=== PATIENT | female | born 1975 | race Caucasian/White ===

== ENCOUNTER → 2016-12-31 | Outpatient (CLI) | payer OTHER ==
--- NOTE | 2016-12-31 14:12 | FL ---
EXAMINATION TYPE: FL arthrogram shoulder RT DATE OF EXAM: 12/31/2016 2:08 PM HISTORY: Pain Pre-MRI arthrogram was performed. Informed consent was obtained and all the patient's questions were answered. A combination of Omnipaque, normal saline and gadolinium was injected into the right should er joint. Appropriate local anesthesia was obtained with 1% lidocaine. Standard sterile technique was utilized. Fluoroscopy was utilized. Patient was sent to MRI for MRI evaluation.
--- NOTE | 2017-01-01 08:20 | MR ---
EXAMINATION TYPE: MR shoulder arthrogrm RT w co DATE OF EXAM: 12/31/2016 2:53 PM COMPARISON: NONE HISTORY: Rt shoulder pain/arthrogram TECHNIQUE: Multiplanar multispin echo imaging of the right shoulder was performed. Contrast was utili zed. There is artifact however of uncertain etiology within the contrast pool. FINDINGS: Rotator cuff : There is a bursal surface partial tear at the critical zone of the supraspinatus tendo n. No evidence for full-thickness tear or retracted tear at this time. The remaining rotator cuff ten dons are intact. Bursa: No bursal effusion or thickening is seen. Musculature: There is no muscular tear, contusion, or atrophy. Acromioclavicular joint : Subacromial spurring resulting in moderate impingement. AC joint arthropath y also identified. Osseous structures : There are no fractures or regions of abnormal bone marrow signal intensity. Long biceps tendon : The biceps tendon is normally situated within the bicipital groove. No complete or partial biceps tendon tear is present. Glenohumeral Joint fluid : There is no glenohumeral joint effusion. Cartilage and Bone : No focal hyaline cartilage defects are noted. No Hill-Sachs, reverse Hill-Sachs, or bony Bankart lesions are seen. Labrum : There are no SLAP or soft tissue Bankart lesions. No paralabral cysts are seen. OTHER FINDINGS : none IMPRESSION: 1. bursal surface partial tear at the critical zone of the supraspinatus tendon. No evidence for ful l-thickness tear or retracted tear at this time. 2. Moderate impingement secondary subacromial spurring and AC joint arthropathy.
== END | disposition home or self-care (01) ==
LOC: RADFLMAIN 13:01
PROVIDERS: ATTEND Orthopaedic Surgery
DX: S46.011A Strain of muscle(s) and tendon(s) of the rotator cuff of right shoulder, initial encounter (principal); M19.011 Primary osteoarthritis, right shoulder; M25.711 Osteophyte, right shoulder; M24.111 Other articular cartilage disorders, right shoulder
CPT/HCPCS: 23350; 73040; 73222; Q9965; A9577

== ENCOUNTER 2017-01-15 21:16 | Emergency (ER) | payer OTHER ==
[2017-01-15 21:24] VITALS: BP 131/62; PULSE 89; RESP 20; TEMP 97.3
[2017-01-15] MEDS ORDERED: ORPHENADRINE 30 MG/ML 2 ML VIAL IM STA (21:31)
--- NOTE | 2017-01-15 21:46 | ED ---
General Adult HPI - General Chief complaint: Back Pain/Injury Stated complaint: back injury/pain Time Seen by Provider: 01/15/17 21:25 Source: patient, RN notes reviewed Mode of arrival: ambulatory Limitations: no limitations - History of Present Illness Initial comments: Patient 41-year-old female who presents emergency room today with a chief complaint of increased lower back pain. Patient states that she was changing the liter box yesterday when she went to stand up straight and felt increased pain in her lower back. She states she's had a difficult time with certain movements. States worse with ambulation trying to stand up straight. She does admit that she uses baclofen at homes had little relief. Also using Tylenol Motrin for pain with no relief of the symptoms. Patient denies any bowel or bladder incontinence retention. Denies any saddle anesthesia. Denies any lumbar radiculopathy. Patient denies any recent fever, chills, shortness of breath, chest pain, abdominal pain, nausea or vomiting, dysuria or hematuria, constipation or diarrhea, headaches or visual changes, or any other complaints. - Related Data Home Medications Medication Instructions Recorded Confirmed Escitalopram Oxalate [Lexapro] 20 mg PO DAILY 08/22/14 04/23/16 clonazePAM [KlonoPIN] 1 mg PO TID 08/22/14 04/23/16 lamoTRIgine [LaMICtal] 100 mg PO BID 08/22/14 04/23/16 oxyCODONE HCL/ACETAMINOPHEN 1 tab PO Q6H PRN 08/22/14 04/23/16 [Percocet 10-325 mg] traZODone HCL 150 mg PO HS 01/20/15 04/23/16 Baclofen [Lioresal] 10 mg PO TID 04/23/16 04/23/16 Pregabalin [Lyrica] 200 mg PO TID 04/23/16 04/23/16 Zolpidem [Ambien] 10 mg PO HS 04/23/16 04/23/16 Allergies Allergy/AdvReac Type Severity Reaction Status Date / Time ibuprofen [From Motrin] Allergy Anaphylaxis Verified 01/15/17 21:24 Review of Systems ROS Statement: Those systems with pertinent positive or pertinent negative responses have been documented in the HPI. ROS Other: All systems not noted in ROS Statement are negative. Past Medical History Past Medical History: No Reported History Additional Past Medical History / Comment(s): ABD. PAIN. HAS HAD HOARSE VOICE AND DRY COUGH FOR PAST 3 WEEKS. HX CLOSED HEAD INJURY 08/22/14 History of Any Multi-Drug Resistant Organisms: MRSA Date of last positivie culture/infection: 2010 MDRO Source:: LT LOWER [place]AW REGION Past Surgical History: Tubal Ligation Past Anesthesia/Blood Transfusion Reactions: Motion Sickness Past Psychological History: Depression Smoking Status: Current every day smoker Past Alcohol Use History: None Reported Past Drug Use History: Marijuana Additional Drug Use History / Comment(s): SMOKES 1-2 JOINTS DAILY PER PT - Past Family History Mother Family Medical History: Cancer Father Family Medical History: Cancer General Exam - General Exam Comments Initial Comments: General: The patient is awake and alert, in no distress, and does not appear acutely ill. Eye: Pupils are equal, round and reactive to light, extra-ocular movements are intact. No nystagmus. There is normal conjunctiva bilaterally. No signs of icterus. Ears, nose, mouth and throat: There are moist mucous membranes and no oral lesions. Neck: The neck is supple, there is no tenderness or JVD. Cardiovascular: There is a regular rate and rhythm. No murmur, rub or gallop is appreciated. Respiratory: Lungs are clear to auscultation, respirations are non-labored, breath sounds are equal. No wheezes, stridor, rales, or rhonchi. Musculoskeletal: patient does have a normal appearance of the thoracic, lumbar spine. No step-offs forms appreciated. Patient does have tenderness midline lumbar spine at L3 to L5. Mild paravertebral tenderness both left and right sides. Strength 5/5. Sensation intact. Pulses equal bilaterally 2+. Neurological: A&O x 3. CN II-XII intact, There are no obvious motor or sensory deficits. Coordination appears grossly intact. Speech is normal. Skin: Skin is warm and dry and no rashes or lesions are noted. Psychiatric: Cooperative, appropriate mood & affect, normal judgment. Limitations: no limitations Course Vital Signs 01/15/17 21:22 Temperature 97.3 F L Pulse Rate 89 Respiratory 20 Rate Blood Pressure 131/62 O2 Sat by Pulse 99 Oximetry Medical Decision Making - Medical Decision Making Patient reexamined at this time and shows no signs of distress. Patient x-rays reviewed and shows evidence of spondylolisthesis of L5-S1. Shows no other acute abnormally. patient's [place] automated prescription system report was reviewed revealing the patient did receive 30 tabs of [place] 7.5 on January 06. patient appears to receive prescription 30 tabs every 15 days. Did discuss this with the patient she states she is currently out of her pain medication. She admits that she did take more than normal because she was having pain. She admits that this pain started yesterday. I did discuss with patient we would be unable to write the pain narcotic for her to go home. Patient did receive both Norflex and Dilaudid here in the emergency room.Advised patient to return to the ER if any symptoms increase or worsen. She states understanding and is in agreement. Disposition Clinical Impression: Acute exacerbation of chronic low back pain Disposition: HOME SELF-CARE Condition: Stable Instructions: Acute Low Back Pain (ED) Additional Instructions: Please use medication as discussed. Please follow-up with family doctor in the next 2 days. Please return to emergency room if the symptoms increase or worsen or for any other concerns. Referrals: Nicho Andersen MD [Primary Care Provider] - 1-2 days Time of Disposition: 22:08
--- NOTE | 2017-01-15 21:49 | XR ---
EXAMINATION TYPE: XR lumbar spine 2 or 3V DATE OF EXAM: 01/15/2017 9:42 PM COMPARISON: NONE HISTORY: Back pain TECHNIQUE: 3 views FINDINGS: There is mild malalignment at L5-S1. There is probably L5 spondylolysis. There is a mild fi rst-degree L5-S1 spondylolisthesis. There is no significant disc space narrowing. Sacroiliac joints a ppear normal. IMPRESSION: L5 spondylolysis with first-degree L5-S1 spondylolisthesis.
[2017-01-15] MEDS ORDERED: HYDROmorphone 1 MG/ML 1 ML SYRINGE IM STA (22:07)
== END 2017-01-15 22:19 | disposition home or self-care (01) ==
LOC: EC 21:16
DX: M54.5 Low back pain (principal); G89.29 Other chronic pain; F32.9 Major depressive disorder, single episode, unspecified; F17.200 Nicotine dependence, unspecified, uncomplicated; Z79.899 Other long term (current) drug therapy; Z88.6 Allergy status to analgesic agent
CPT/HCPCS: 72100; 99283; 96372 ×2; J2360; J1170

== ENCOUNTER → 2017-09-09 | Outpatient (CLI) | payer OTHER ==
--- NOTE | 2017-09-09 10:26 | MR ---
EXAMINATION TYPE: MR lumbar spine wo con DATE OF EXAM: 09/09/2017 COMPARISON: 05/07/2011 HISTORY: 41-year-old female with low back pain TECHNIQUE: Multiplanar, multisequence images of the lumbar spine were acquired. Findings: Vertebral body heights are preserved. Redemonstrated grade 1 anterolisthesis at L5-S1. This may be secondary to bilateral pars defects of L 5. Mild to moderate degenerative disc disease from L3 through S1 levels with disc desiccation and bulgin g discs. Disc desiccation is progressed at both L3-L4 and L5-S1. Tiny posterior annular fissure left paracentral location at L5-S1 and centrally at L3-L4 are new. Facet arthropathy mid to lower lumbar spine. No suspicious bone marrow replacement. Conus medullaris is normal. From T12 through L3 levels, no significant spinal canal or neuroforaminal stenosis. At L3-L4, there is small bulging disc with tiny central annular fissure. No significant canal or fora addie stenosis. At L4-L5, mild facet arthropathy and mild bulging disc. Changes result in minimal bilateral inferior neuroforaminal narrowing, stable to slightly increased from prior. No spinal canal stenosis. At L5-S1, bulging disc with tiny left paracentral annular fissure which closely approaches the marcela sing left S1 nerve root. Minimal inferior right neural foraminal stenosis. No spinal canal stenosis. No prevertebral or paravertebral soft tissue abnormality. IMPRESSION: 1. Mild to moderate degenerative disc disease from L3 through S1 levels, slightly progressed from 201 1 with greater degree of disc desiccation. A small left paracentral annular fissure at L5-S1 and cent rally at L3-L4 appear new. 2. Facet arthropathy mid to lower lumbar spine with redemonstrated grade 1 anterolisthesis at L5-S1 s uspected to be secondary to bilateral L5 pars defects. 3. The left paracentral annular fissure at L5-S1 closely approaches the traversing left S1 nerve root . There is variable minimal inferior foraminal narrowing lower lumbar spine. No cindy canal or forami nal compromise.
== END | disposition home or self-care (01) ==
LOC: RADMRIMAIN 07:44
PROVIDERS: ATTEND Orthopaedic Surgery
DX: M51.37 Other intervertebral disc degeneration, lumbosacral region (principal); M46.96 Unspecified inflammatory spondylopathy, lumbar region; M43.17 Spondylolisthesis, lumbosacral region; M99.73 Connective tissue and disc stenosis of intervertebral foramina of lumbar region; M53.86 Other specified dorsopathies, lumbar region
CPT/HCPCS: 72148

== ENCOUNTER → 2018-04-01 | Outpatient (CLI) | payer OTHER ==
--- NOTE | 2018-04-01 16:24 | US ---
EXAMINATION TYPE: US transvaginal DATE OF EXAM: 04/01/2018 COMPARISON: US 04/25/11 CLINICAL HISTORY: 42-year-old female N92.1 MENORRHAGIA. Heavy, long periods TECHNIQUE: Transvaginal (TV). Date of LMP: 03/29/2018 FINDINGS: Uterus: Anteverted measuring 8.6 x 5.3 x 4.1 cm. Heterogeneous myometrium. There is a small hypoechoi c area posterior body measuring 1.1 cm that is intramural. Cervical nabothian cyst measures 5 mm. Endometrial Stripe: 0.4 cm, within normal limits. Right Ovary: 2.0 x 2.0 x 1.7 cm with a 2 cm dominant follicle or functional cyst. Left Ovary: 2.4 x 1.9 x 1.4 cm No evident adnexal abnormality or cul-de-sac free fluid. IMPRESSION: Heterogeneous appearance to the myometrium can be seen in the setting of diffuse small fibroid change or adenomyosis. There is a 1.1 cm intramural focal fibroid in the posterior uterine body.
--- NOTE | 2018-04-02 07:46 | MM ---
Reason for exam: screening (asymptomatic). Last mammogram was performed 2 years and 2 months ago. History: Family history of breast cancer in aunt. Physical Findings: A clinical breast exam by your physician is recommended on an annual basis and results should be correlated with mammographic findings. MG 3D Screening Mammo W/Cad Bilateral CC and MLO view(s) were taken. Prior study comparison: January 18, 2016, bilateral MG screening mammo w CAD. The breast tissue is heterogeneously dense. This may lower the sensitivity of mammography. There is no discrete abnormality. ASSESSMENT: Negative, BI-RAD 1 RECOMMENDATION: Routine screening mammogram of both breasts in 1 year.
== END | disposition home or self-care (01) ==
LOC: RADMAMWWP 10:59
PROVIDERS: ATTEND Pediatrics
DX: Z12.31 Encounter for screening mammogram for malignant neoplasm of breast (principal); D25.1 Intramural leiomyoma of uterus
CPT/HCPCS: 76830; 77063; 77067

== ENCOUNTER → 2019-04-22 | Outpatient (CLI) | payer OTHER ==
--- NOTE | 2019-04-23 18:10 | MR ---
EXAMINATION TYPE: MR shoulder RT wo con DATE OF EXAM: 04/22/2019 COMPARISON: None HISTORY: 43-year-old female with pain, Traumatic right rotator cuff tear TECHNIQUE: Multiplanar, multisequence imaging of the right shoulder is performed without contrast. FINDINGS: The intracapsular portion of the long head biceps tendon appears diminutive. This may be chronic cabrera ge or could represent a partial tear. The extracapsular portion is appropriately situated along the b icipital groove. Mild heterogeneous signal in subscapularis tendon which remains intact. Prior supraspinatus and infraspinatus tendon repair with laterally positioned suture anchors. There is a large retear involving the mid and posterior supraspinatus tendon measuring 1.8 cm AP and 2.3 cm long. Fluid within the intervening gap contiguous with the glenohumeral joint. Some of the far anterior supraspinatus tendon fibers remain intact as do posterior infraspinatus tendon fibers. Mild fatty infiltration of both supraspinatus and infraspinatus muscle bellies. Moderate degenerative joint space narrowing with marginal spurring and capsular hypertrophy at the ac romioclavicular joint. The glenohumeral joint appears intact. No discrete labral tear given nonarthrographic technique and n o paralabral cyst. No Hill-Sachs deformity or os acromiale. No suspicious bone marrow replacement. IMPRESSION: 1. Large re-tear of most of the supraspinatus tendon measuring 1.8 cm AP and 2.3 cm long. A few of th e far anterior supraspinatus tendon fibers as well as posterior infraspinatus tendon remain intact. 2. Mild fatty infiltration of both supraspinatus and infraspinatus muscle bellies. 3. Diminutive intracapsular portion of the long head biceps tendon may be chronic change or could rep resent a partial tear. 4. Moderate AC joint OA.
== END | disposition home or self-care (01) ==
LOC: RADMRIMAIN 09:14
PROVIDERS: ATTEND Orthopaedic Surgery
DX: S46.011A Strain of muscle(s) and tendon(s) of the rotator cuff of right shoulder, initial encounter (principal); M19.011 Primary osteoarthritis, right shoulder

== ENCOUNTER → 2019-08-26 | Outpatient (CLI) | payer OTHER ==
--- NOTE | 2019-08-26 15:06 | CONS ---
CONSULTATION DATE OF SERVICE: 08/26/2019 A 43-year-old lady who has been evaluated in the [facility] for possible obstructive sleep apnea-hypopnea syndrome. HISTORY OF PRESENT ILLNESS/SLEEP-WAKE EVALUATION: Patient's usual sleep schedule from 10 to 11 p.m. until 5 a.m. on weekdays, 10 - 11 p.m. until 8 a.m. on weekends. She does have problem with falling asleep, has TV set in bedroom. She usually sleeps on the side position with loud snoring, witnessed episodes of stopped breathing during the sleep. Patient wakes up from sleep around 4 times with dry mouth, episodes of heartburn, gasping for air, restless legs, sweating, and the same amount of time with nocturia. In the morning, patient wakes up tired, has difficulties to pay attention, falling asleep during the day, has problems with memory, concentration, irritability, depression and anxiety. [place] Sleepiness Scale is 9. Usually, she does not take any naps during the day. PAST MEDICAL HISTORY: Positive for depression, acid reflux, shoulder, back problem, hyperlipidemia. PAST SURGICAL HISTORY: Tubal ligation, D and C, neck and back injection, right foot surgery and surgery for a rotator cuff on the right side. MEDICATIONS: Lexapro, Lamictal, Prilosec, Lipitor, Percocet, tramadol, Singulair, Motrin, Lyrica. SOCIAL HISTORY: Positive for smoking for about 30 pack years. Patient continues to smoke. Alcohol consumption occasional. FAMILY HISTORY: Hyperlipidemia, arthritis, sinus problems, headaches, cancer, sleep apnea, lung problems, acid reflux, problem, diabetes, mental illness, restless legs. REVIEW OF SYSTEMS: Multiple awakenings from sleep, tiredness and sleepiness during the day, episodes of depression. PHYSICAL EXAM: Pleasant lady without distress, BP 113/74, HR 70, RR 14, height 5, 5, weight 156.2, temperature 97.7, oxygen saturation at room air 97%. OROPHARYNX: Moderately low position of soft palate. No slightly asymmetric, slight restriction of nasal breathing. NECK: Supple, no JVD. Thyroid is not palpable. LUNGS: Clear to percussion and to auscultation. Good air exchange. No wheezing or rhonchi. HEART: S1, S2 regular. No murmurs, gallops, or rubs. ABDOMEN: Soft and nontender. Bowel sounds are present. No organomegaly appreciated. EXTREMITIES: No clubbing or cyanosis. SYSTEMS INTEGRATION ENGINEER: Awake, alert, and oriented X3. Cranial nerves 2 to 7 intact. There is no fasciculation or atrophy. noted. No focal deficits observed. IMPRESSION: 1. Loud snoring, witnessed episodes of stopped breathing during sleep, multiple awakenings from sleep with nocturia, episodes of tiredness and sleepiness, obstructive sleep apnea-hypopnea syndrome. 2. History of depression. 3. Acid reflux. 4. Shoulder pain. 5. Back pain. 6. Status post right shoulder surgery for rotator cuff problems. 7. Hyperlipidemia. 8. Status post foot surgery. 9. Status post tubal ligation. 10.Status post D and C. 11.Status post neck and back injections. PLAN: 1. Polysomnography for evaluation of patient's breathing during sleep. 2. CPAP/BiPAP titration if sleep study confirms obstructive sleep apnea-hypopnea syndrome. 3. Preferable position during sleep on the side. 4. No driving if patient feels any sleepiness. 5. I will see patient for follow up visit to explain results of testing and following plan. Thank you very much for referring this patient for consultation. Sincerely, Rik Cabello MD, PhD, FAASM Diplomat of [employer] [employer] [employer] [facility] [place] MMNASIRL / CHANDLER: [id number] /
== END | disposition home or self-care (01) ==
LOC: SLEEP 13:41
PROVIDERS: ATTEND Internal Medicine
DX: G47.33 Obstructive sleep apnea (adult) (pediatric) (principal); M19.90 Unspecified osteoarthritis, unspecified site; E78.5 Hyperlipidemia, unspecified; E11.9 Type 2 diabetes mellitus without complications; K21.9 Gastro-esophageal reflux disease without esophagitis; M54.9 Dorsalgia, unspecified; M25.519 Pain in unspecified shoulder; Z98.890 Other specified postprocedural states; Z86.59 Personal history of other mental and behavioral disorders; Z79.899 Other long term (current) drug therapy; Z79.891 Long term (current) use of opiate analgesic; Z98.51 Tubal ligation status; Z79.1 Long term (current) use of non-steroidal anti-inflammatories (NSAID)
CPT/HCPCS: 99211

== ENCOUNTER 2020-03-25 16:30 | Emergency (ER) | payer OTHER ==
[2020-03-25 16:51] VITALS: RESP 18
[2020-03-25] MEDS ORDERED: ONDANSETRON 4 MG/2 ML VIAL IVP STA (17:25)
[2020-03-25] MEDS ORDERED: HYDROmorphone 1 MG/ML 1 ML SYRINGE IVP STA (17:25)
--- NOTE | 2020-03-25 18:34 | ED ---
Neck Injury/Pain HPI - General Chief Complaint: Neck Pain/Injury Stated Complaint: neck pain Time Seen by Provider: 03/25/20 17:18 Mode of arrival: ambulatory Limitations: no limitations - History of Present Illness Initial Comments: 44-year-old female patient presents to the emergency department today for evaluation of pain to the right side of her neck at the base of her head. Patient states last evening she turned her head to the right and felt and heard a "pop". Patient states she had immediate onset of pain to the area. Patient states the area is very tender to touch, she feels a bulging, andhurts with movement. Denies any pain radiating down her arms. Denies fever or chills. She is to smoking cigarettes. Denies history of high blood pressure. Denies any blurred vision, double vision, dizziness, or weakness. Denies any use of anticoagulants or antiplatelet medications. States she is taking Percocet at home 3 times a day, ibuprofen, and Flexeril without relief. - Related Data Home Medications Medication Instructions Recorded Confirmed Escitalopram Oxalate [Lexapro] 20 mg PO HS 08/22/14 03/25/20 oxyCODONE HCL/ACETAMINOPHEN 1 tab PO TID 08/22/14 03/25/20 [Percocet 10-325 mg] traZODone HCL 300 mg PO HS 01/20/15 03/25/20 Pregabalin [Lyrica] 200 mg PO TID 04/23/16 03/25/20 Atorvastatin [Lipitor] 20 mg PO HS 03/25/20 03/25/20 Cetirizine HCl [Zyrtec] 10 mg PO DAILY 03/25/20 03/25/20 Docusate [Colace] 100 mg PO DAILY PRN 03/25/20 03/25/20 Ibuprofen [Motrin] 800 mg PO TID 03/25/20 03/25/20 Montelukast [Singulair] 10 mg PO HS 03/25/20 03/25/20 Omeprazole 20 mg PO BID 03/25/20 03/25/20 lamoTRIgine [LaMICtal] 200 mg PO HS 03/25/20 03/25/20 polyethylene glycoL 3350 [Miralax] 17 gm PO DAILY 03/25/20 03/25/20 Previous Rx's Medication Instructions Recorded Diazepam [Valium] 5 mg PO TID PRN 3 Days #9 tab 03/25/20 Lidocaine 5% Patch [Lidoderm] 1 patch TOPICAL DAILY #30 patch 03/25/20 Allergies Allergy/AdvReac Type Severity Reaction Status Date / Time No Known Allergies Allergy Verified 03/25/20 19:26 Review of Systems ROS Statement: Those systems with pertinent positive or pertinent negative responses have been documented in the HPI. ROS Other: All systems not noted in ROS Statement are negative. Past Medical History Past Medical History: No Reported History Additional Past Medical History / Comment(s): ABD. PAIN. HX CLOSED HEAD INJURY 08/22/14 History of Any Multi-Drug Resistant Organisms: MRSA Date of last positivie culture/infection: 2010 MDRO Source:: LT LOWER JAW REGION Past Surgical History: Tubal Ligation Past Anesthesia/Blood Transfusion Reactions: Motion Sickness Past Psychological History: Depression Smoking Status: Current every day smoker Past Alcohol Use History: None Reported Past Drug Use History: Marijuana - Past Family History Mother Family Medical History: Cancer Father Family Medical History: Cancer General Exam Limitations: no limitations Course Vital Signs 03/25/20 03/25/20 16:49 19:08 Temperature 98.8 F 97.7 F Pulse Rate 84 66 Respiratory 18 18 Rate Blood Pressure 110/64 108/83 O2 Sat by Pulse 97 99 Oximetry Medical Decision Making - Medical Decision Making 44-year-old female patient presents to the emergency department today for evaluation of right-sided neck pain and pain at the base of her skull. Physical examination reveals tenderness over the right lateral neck and right shoulder. She is neurologically intact with no focal deficits. She is afebrile. CT C- spine negative. CT angiography of the head and neck were negative.we did discuss muscle spasm as a cause for her symptoms. She will be given Lidoderm patchesand muscle relaxers. She is instructed to perform gentle range of motion of the neck. She is instructed to follow-up with her primary care physician for recheck in 1-2 days. Return parameters were discussed in detail. She verbalizes understanding and agrees with this plan. - Radiology Data Radiology results: report reviewed, image reviewed CT angiography of the head and neck is obtained. Report reviewed in its entirety. Impression by Dr. Thurston shows normal CT angiogram of the neck. Normal CT angiogram of the brain. CT cervical spine was obtained. Report was reviewed in its entirety. Impression by Dr. Thurston shows mild degenerative disc changes at C5 to 6. Otherwise negative exam. No fracture. Disposition Clinical Impression: Muscle spasms of neck Disposition: HOME SELF-CARE Condition: Good Instructions (If sedation given, give patient instructions): Muscle Spasm (ED) Additional Instructions: Perform gentle range of motion. Apply warm compresses to the neck 20 minutes at a time at least 4 times daily. Use medications as directed. Follow-up with your primary care physician for recheck in 1-2 days. Return to the emergency department immediately for any new, worsening, or concerning symptoms. Prescriptions: Lidocaine 5% Patch [Lidoderm] 1 patch TOPICAL DAILY #30 patch Diazepam [Valium] 5 mg PO TID PRN 3 Days #9 tab PRN Reason: Muscle Spasm Is patient prescribed a controlled substance at d/c from ED?: No Referrals: Nicho Andersen MD [Primary Care Provider] - 1-2 days Time of Disposition: 19:21
--- NOTE | 2020-03-25 19:02 | CT ---
EXAMINATION TYPE: CT angio head neck DATE OF EXAM: 03/25/2020 COMPARISON: None HISTORY: Head and neck pain after twisting injury. CT DLP: 467.7 mGycm Automated exposure control for dose reduction was used. CONTRAST: Performed with IV Contrast, patient injected with 65ml mL of Isovue 370. Multiple axial sections were obtained from the aortic arch to the vertex of the brain with IV contras t and 3-D post processed images. There is normal branching pattern of the great vessels on the aortic arch. Left vertebral artery has origin on the arch. There is arterial flow in both subclavian arteries. There is arterial flow in the common internal and external carotid arteries bilaterally. There is wide patency of the carotid flora ry bifurcations. There is arterial flow in both vertebral arteries. Vertebral arteries appear widely patent. There is no evidence of carotid artery aneurysm or dissection. There is arterial flow in the vertebrobasilar artery system. There is arterial flow in the anterior middle and posterior cerebral arteries. There is normal contra st opacification of the venous sinuses. There is no mass effect. There is no evidence of intracranial aneurysm or neovascularity. I see no evidence of intracranial arterial stenosis. IMPRESSION: Normal CT angiogram of the neck. Normal CT angiogram of the brain.
--- NOTE | 2020-03-25 19:07 | CT ---
EXAMINATION TYPE: CT cervical spine w con DATE OF EXAM: 03/25/2020 COMPARISON: None HISTORY: Head and neck pain after twisting injury. CT DLP: 467.7 mGycm Automated exposure control for dose reduction was used. CONTRAST: Performed with IV Contrast, patient injected with 65ml mL of Isovue 370. Cervical vertebra have normal spacing and alignment. Posterior elements are intact. Facet joints are intact and there is mild posterior endplate spur formation at C5-6. The prevertebral soft tissues oscar ear normal. I see no focal bone destruction. There is no pathologic enhancement. IMPRESSION: Mild degenerative disc changes at C5-6. Otherwise negative exam. No fracture.
[2020-03-25 19:09] VITALS: BP 108/83; PULSE 66; TEMP 97.7
[2020-03-25] MEDS ORDERED: LIDOCAINE 5% PATCH TOPICAL STA (19:23)
[2020-03-25] MEDS ORDERED: KETOROLAC 30 MG/ML 1 ML VIAL IVP STA (19:28)
== END 2020-03-25 19:54 | disposition home or self-care (01) ==
LOC: EC 16:30
DX: M62.838 Other muscle spasm (principal); F32.9 Major depressive disorder, single episode, unspecified; F17.210 Nicotine dependence, cigarettes, uncomplicated; Z79.899 Other long term (current) drug therapy; Z79.1 Long term (current) use of non-steroidal anti-inflammatories (NSAID)
CPT/HCPCS: 72126; 70496; 70498; 99284; 96374; 96375 ×2; J2405; J1885; J1170; Q9967